=== PATIENT | male | born 1980 | race American Indian/Alaskan Native ===

== ENCOUNTER 2016-11-05 12:12 | Emergency (ER) | payer MEDICAID ==
[2016-11-05 12:34] VITALS: RESP 16
[2016-11-05] MEDS ORDERED: MECLIZINE HCL 25 MG TAB PO ONE (13:33)
--- NOTE | 2016-11-05 13:38 | UCPHY ---
H & P Time Seen by Provider: 11/05/16 13:11 Patient Type: New HPI/ROS: HPI Vertigo. 36-year-old male by private vehicle with his brother. This patient complains of vertigo which has been present for the last 2-3 days. He describes it as worse with head movement and walking and sitting up. In triage he explained that he has also had an intermittent cough, sore throat and congestion. He reports that this is not bothering him at this time and the main reason he came to the urgent care is for his vertigo. ROS: Constitutional: No fever, no chills. No weakness. As above. Eyes: No discharge. No changes in vision. ENT: As above. Respiratory: As above. No shortness of breath. Cardiac: No chest pain, no palpitations. Gastrointestinal: No abdominal pain, no vomiting, no diarrhea. Genitourinary: No hematuria. No dysuria or increased frequency with urination. Musculoskeletal: No back pain. No neck pain. No myalgias or arthralgias. Skin: No rashes. Neurological: No headache. No focal weakness or altered sensation. As above. Past medical history: Asthma as a child. Social history: Here with his brother. Physical Exam: General Appearance: Alert, no distress. This patient is responding to questions appropriately and in full sentences. This patient appears well- hydrated and well-nourished. Eyes: Pupils equal and round no pallor or injection. No lid edema, erythema or injection. Horizontal Uni directional nystagmus noted. No photophobia. Positive head impulse test with catch-up saccades. ENT, Mouth: Mucous membranes are moist. The pharyngeal tissues are unremarkable. No edema or swelling. No asymmetry suggestive of abscess. No erythema or exudates. External auditory canals and tympanic membranes are unremarkable bilaterally. Respiratory: There are no retractions, lungs are clear to auscultation with good air movement bilaterally. Cardiovascular: Regular rate and rhythm. No murmur. Neurological: Motor sensory function is grossly intact. Cranial nerves are normal. Gait is normal. Skin: Warm and dry, no rashes. Musculoskeletal: Neck is supple and nontender. No pain on flexion of the neck. No suboccipital pain. No carotid bruits on auscultation of his neck. No tenderness on palpation of the soft tissues of the lateral neck. Extremities are symmetrical. All joints range without pain or impingement. Psychiatric: No agitation. No depression. Database: EKG: Imaging: Procedures: Emergency department course: This patient's presentation is consistent with a peripheral etiology of vertigo. He will be given 25 mg of meclizine. 2:25 p.m., patient re-evaluated. His vertigo has completely resolved. He was up and ambulatory around the urgent care with a normal gait. Repeat neurologic Assessment is nonfocal. He is reporting feeling much better. I explained I would prescribe him meclizine for the next few days for treatment of peripheral vertigo. I discussed follow-up. Return to Urgent Care/emergency department precautions were reviewed thoroughly with him. All of his questions were answered. He was discharged in good condition. Differential Diagnosis: The differential diagnosis on this patient includes but is not limited to acute vestibular neuritis/labyrinthitis, benign positional vertigo. Vertebral artery dissection, cerebellar CVA, other central etiology of vertigo unlikely. This represents a partial list of diagnoses considered. These considerations are based on history, physical exam, past history, reassessment and diagnostic testing. Smoking Status: Never smoked Constitutional: Initial Vital Signs Temperature (C) 36.8 C 11/05/16 12:30 Heart Rate 86 11/05/16 12:30 Respiratory Rate 16 11/05/16 12:30 Blood Pressure 114/76 11/05/16 12:30 O2 Sat (%) 96 11/05/16 12:30 O2 Delivery Mode Room Air Allergies/Adverse Reactions: No Known Allergies Allergy (Unverified 11/05/16 12:30) Home Medications: Medication Instructions Recorded Meclizine HCl [ANTIVERT] 25 mg PO Q6 PRN #14 tab 11/05/16 MDM/Departure - MDM Medications Given: Discontinued Medications Meclizine HCl (Meclizine Hcl) 25 mg PO EDNOW ONE Stop: 11/05/16 13:34 Last Admin: 11/05/16 14:06 Dose: 25 mg - Depart Disposition: Home, Routine, Self-Care Clinical Impression: Vertigo Condition: Good Instructions: Vertigo (ED) Additional Instructions: Read and follow provided instructions. Follow-up with your primary care physician or 1 I have referred you to in 2-3 days for re-evaluation. Take medication as prescribed. Return to the emergency department for worsening vertigo, headache, neck pain, difficulty walking or other serious concerns. Prescriptions: Meclizine HCl [ANTIVERT] 25 mg PO Q6 PRN #14 tab PRN Reason: Dizziness Referrals: Chance Mcmillan MD [Medical Doctor] - As per Instructions Brandie Ldebetter MD [Medical Doctor] - As per Instructions - PQRS PQRS Measurement: Not applicable.
[2016-11-05 14:40] VITALS: BP 113/76; PULSE 80; TEMP 97.9; O2SAT 95
== END 2016-11-05 14:39 | disposition home or self-care (01) ==
LOC: CED 12:12
DX: R42 Dizziness and giddiness (principal)
CPT/HCPCS: 87400-PO; 87880-PO; G0463-PO